=== PATIENT | female | born 1985 | race Hispanic/Latino ===

== ENCOUNTER 2017-05-27 00:55 | Emergency (ER) | payer MEDICAID, OTHER ==
[2017-05-27] MEDS ORDERED: DICYCLOMINE HCL 20 MG TAB ONE (01:01)
[2017-05-27] MEDS ORDERED: LACTULOSE 20 GM/30 ML UDCUP ONE (01:13)
[2017-05-27 01:21] LABS: BASOPHILS % (AUTO) 0.2 % (0.0-5.0); HEMATOCRIT 39.6 % (36-48); LYMPHOCYTES % (AUTO) 21.6 % (21.0-51.0); MEAN CORPUSCULAR HEMOGLOBIN 31.4 pg (27.0-33.0); MEAN CORPUSCULAR VOLUME 92.3 fL (79-99); MONOCYTES % (AUTO) 8.9 % (3.0-13.0); NEUTROPHILS % (AUTO) 51.5 % (40.0-77.0); PLATELET COUNT (AUTO) 222 K/uL (130-400); RED BLOOD CELL COUNT(AUTO) 4.29 MIL/uL (4.00-5.50); WHITE BLOOD COUNT (AUTO) 11.7 K/uL (4.8-10.8)
[2017-05-27 01:30] LABS: CREATININE 0.8 mg/dL (0.5-1.5); POTASSIUM 3.2 mmol/L (3.5-5.1)
[2017-05-27 01:31] LABS: APPEARANCE,URINE Clear (CLEAR); BILIRUBIN,URINE Negative (NEGATIVE); COLOR,URINE Yellow (YELLOW); GLUCOSE, URINE (UA) Negative (NEGATIVE); HCG,QUAL RESULT NEGATIVE (NEGATIVE); KETONES,URINE Negative (NEGATIVE); LEUKOCYTE ESTERASE ,URINE Negative (NEGATIVE); NITRATE,URINE Negative (NEGATIVE); OCCULT BLOOD,URINE Negative (NEGATIVE); PROTEIN,URINE Negative (NEGATIVE); UROBILINOGEN,URINE 0.2 mg/dL (0.2-1.0)
[2017-05-27 01:35] LABS: ALBUMIN 3.3 g/dL (3.5-5.0); BILIRUBIN,DIRECT 0.1 mg/dL (0.0-0.3); BILIRUBIN,TOTAL 0.2 mg/dL (0.2-1.0); TOTAL PROTEIN, SERUM 6.9 g/dL (6.0-8.3)
[2017-05-27 01:37] LABS: EOSINOPHILS % (AUTO) 17.8 % (0.0-8.0)
[2017-05-27] MEDS ORDERED: KETOROLAC TROMETHAMINE 30MG/ML ONE (02:27)
[2017-05-27] MEDS ORDERED: HYOSCYAMINE SULFATE 0.125 MG TAB.SUBL SL ONE (03:03)
== END 2017-05-27 03:40 | disposition home or self-care (01) ==
LOC: EDH 00:55
DX: R10.9 Unspecified abdominal pain (principal); K59.00 Constipation, unspecified; R11.0 Nausea
CPT/HCPCS: 36415; 74176; 80048; 80076; 81003; 81025; 83690; 85025; 96374; 99285; J1885

== ENCOUNTER 2021-12-13 00:02 | Emergency (ER) | payer MEDICAID ==
[~2021-12-13] VITALS: Ht 154.9 cm; Wt 59.0 kg
[2021-12-13 00:18] VITALS: BP 124/74
[2021-12-13] MEDS ORDERED: LIDOCAINE HCL 2% VISCOUS 15 ML UDCUP ONE (00:22)
[2021-12-13] MEDS ORDERED: MAG/ALUM/SIMETH 30 ML UDCUP ONE (00:22)
[2021-12-13] MEDS ORDERED: DICYCLOMINE HCL 10 MG/5 ML ML PO ONE (00:22)
[2021-12-13] MEDS ORDERED: ACETAMINOPHEN 325 MG TAB PO ONE (00:30)
[2021-12-13] MEDS ORDERED: LIDOCAINE HCL 2% VISCOUS 15 ML UDCUP PO ONE (00:30)
[2021-12-13] MEDS ORDERED: MAG/ALUM/SIMETH 30 ML UDCUP PO ONE (00:30)
[2021-12-13] MEDS ORDERED: IBUP-2070 PO (01:15)
== END 2021-12-13 01:21 | disposition home or self-care (01) ==
LOC: EDH 00:02
DX: U07.1 COVID-19 (principal); J02.9 Acute pharyngitis, unspecified
CPT/HCPCS: 99283; 87635; 87880; 87804 ×2; C9803